=== PATIENT | female | born 1990 | race Caucasian/White ===

== ENCOUNTER 2018-08-15 12:33 | Emergency (ER) | payer BC ==
[2018-08-15] MEDS ORDERED: NS 0.9% 1000 ML* 1,000 ML IV ONE (13:03)
[2018-08-15] MEDS ORDERED: predniSONE TAB* 20 MG PO ONE (13:06)
[2018-08-15] MEDS ORDERED: Albuterol/Ipratropium NEB.SOL* Albuterol 2.5 MG/Ipratropium 0.5 MG 3 ML INH ONE (13:06)
--- NOTE | 2018-08-15 13:12 | ED ---
Complex/Multi-Sys Presentation - HPI Summary HPI Summary: Patient is a 27 y/o F w/ c/o cough, SVT and syncopal episode. Cough has been present for a week. Cough is productive w/ clear phlegm. Fever, chills, abnormal ANDRADE is denied. Patient's son is reported to be sick (has a runny nose). Cough has progressively worsened throughout the week. She has been taking cough drops with no relief. SOB, chest tightness and palpitations is noted with cough as well. Patient believes cough has also produced a flare up of her SVT. Dx of SVT in 2010, not on any medications currently as she reports that she has issues with low blood pressure. At 1100 today, patient was coughing, went into her bathroom, and had a syncopal episode. Patients partner witnessed the episode. She denies LOC and head injury. Patient reports she does not remember falling, but notes that she remembers being on the floor. She states feeling limp after the episode. She reports that she had one episode of similar Sx two years ago when she was Dx w/ bronchitis. She was treated with an inhaler for this. PMHx of asthma, diabetes, HTN, anemia is denied. Patient reports that she has been told she has early signs of emphysema. Patient smokes packs of cigarettes daily for the past 12 years. She denies alcohol and drug usage. Home medications and known allergies are denied. On triage, pain is denied. Nothing is noted to aggravate/alleviate Sx. - History Of Current Complaint Chief Complaint: EDUpperRespComplaint Time Seen by Provider: 08/15/18 12:45 Hx Obtained From: Patient Onset/Duration: Lasting Hours - syncopal episode at 1100, Lasting Weeks - cough , Still Present - cough Timing: Hours - syncopal episode 1100 today, Weeks - cough one week Severity Currently: None - pain is denied on triage Location: Negative Aggravating Factor(s): nothing Alleviating Factor(s): nothing Associated Signs And Symptoms: Positive: Cough, Other - POSITIVE: syncope, SVT, chest tightness, chest palpitations, "limp" after syncope, does not remember falling NEGATIVE: chills, LOC, head injury,. Negative: Headache, Fever - Allergies/Home Medications Allergies/Adverse Reactions: Allergies Allergy/AdvReac Type Severity Reaction Status Date / Time No Known Allergies Allergy Verified 08/15/18 12:35 PMH/Surg Hx/FS Hx/Imm Hx Endocrine/Hematology History: Denies: Hx Diabetes, Hx Anemia Cardiovascular History: Denies: Hx Hypertension Respiratory History: Denies: Hx Asthma Infectious Disease History: No Infectious Disease History: Denies: Traveled Outside the [place] in Last 30 Days - Family History Known Family History: Negative: Blood Disorder - Social History Alcohol Use: None Substance Use Type: Reports: None Smoking Status (MU): Current Every Day Smoker Review of Systems Positive: Other - felt "faint" after syncope . Negative: Fever, Chills Positive: Other - SVT, chest tightness and palpitations Positive: Shortness Of Breath, Cough Neurological: Other - POSITIVE: does not remember falling NEGATIVE: head injury Positive: Syncope - no LOC . Negative: Headache All Other Systems Reviewed And Are Negative: Yes Physical Exam - Summary Physical Exam Summary: Appearance: Well appearing, no pain distress Skin: warm, dry, reflects adequate perfusion Head/face: normal Eyes: EOMI, GANESH ENT: mucous membranes moist; clear nasal congestion Neck: supple, non-tender Respiratory: occasional wheezes, no rales or rhonci, breath sounds present Cardiovascular: RRR, pulses symmetrical Abdomen: non-tender, soft Bowel Sounds: present Musculoskeletal: normal, strength/ROM intact Neuro: normal, sensory motor intact, A&Ox3 Triage Information Reviewed: Yes Vital Signs On Initial Exam: Initial Vitals Temp Pulse Resp BP Pulse Ox 98 F 84 18 107/73 98 08/15/18 12:35 08/15/18 12:35 08/15/18 12:35 08/15/18 12:35 08/15/18 12:35 Vital Signs Reviewed: Yes Diagnostics - Vital Signs Vital Signs Temp Pulse Resp BP Pulse Ox 08/15/18 12:35 98 F 84 18 107/73 98 - Laboratory Result Diagrams: 08/15/18 13:09 08/15/18 13:09 Lab Statement: Any lab studies that have been ordered have been reviewed, and results considered in the medical decision making process. - Radiology CXR Xray Interpretation: No Acute Changes Radiology Interpretation Completed By: Radiologist - no evidence for acute intrathoracic disease; this report was reviewed by ed physician - EKG 1312 Cardiac Rate: NL - rate of 70 bpm EKG Rhythm: Sinus Rhythm ST Segment: Normal EKG Interpretation: normal axis, normal interval Re-Evaluation - Re-Evaluation First Eval Re-Evaluation Time: 14:09 Comment: Discussed results of labs and tests. Plan of treatment was discussed as well. Patient will be discharged to home and was advised to follow up with PCP. Complex Multi-Symp Course/Dx Course Of Treatment: Patient with cough and cold symptoms for one week and had a syncopal episode just prior to arrival. She likely was hypovolemic or vasovagal. Electrolytes, blood counts are normal and EKG shows no electrical abnormalities. She was hydrated here given a breathing treatment with improvement. She is also started on steroid. X-ray was negative for acute infiltrate. Treat symptomatically, follow-up closely with primary care physician and off work. - Diagnoses Differential Diagnoses/HQI/PQRI: Other - URI, pneumonia, hypovolemia, vasovagal Provider Diagnoses: URI (upper respiratory infection), Episode of syncope Discharge - Sign-Out/Discharge Documenting (check all that apply): Patient Departure - discharge - Discharge Plan Condition: Stable Disposition: HOME Prescriptions: Albuterol HFA INHALER* [Ventolin HFA Inhaler*] 2 puff INH Q4H PRN #1 mdi PRN Reason: Sob/Wheezing guaiFENesin [Mucinex] 600 mg PO BID PRN #20 tab.er.12h PRN Reason: Congestion predniSONE TAB* [Deltasone TAB*] 50 mg PO DAILY #4 tab Patient Education Materials: Syncope (ED), Upper Respiratory Infection (ED) Forms: *Work Release Referrals: Karla Cooper NP [Primary Care Provider] - Additional Instructions: Drink plenty of fluids. Humidifier by the bedside while you sleep. Tylenol, ibuprofen for body aches and chills. Return if worse, high fevers, difficulty breathing, new symptoms or other concerns. Follow up with her doctor tomorrow. - Billing Disposition and Condition Condition: STABLE Disposition: Home - Attestation Statements Document Initiated by Scribe: Yes Documenting Scribe: Elton Granados Provider For Whom Scribe is Documenting (Include Credential): Ghulam Tracy MD Scribe Attestation: Elton Ramirez , scribed for Ghulam Tracy MD on 08/15/18 at 1503. Scribe Documentation Reviewed: Yes Provider Attestation: The documentation as recorded by the Elton ortiz accurately reflects the service I personally performed and the decisions made by me, Ghulam Tracy MD
[2018-08-15 13:19] LABS: ABS Basophils 0.1 10^3/ul (0-0.2); ABS Eosinophils 0.1 10^3/ul (0-0.6); ABS Lymphocytes 2.5 10^3/ul (1.0-4.8); ABS Monocytes 0.5 10^3/ul (0-0.8); ABS Nucleated RBC 0 10^3/ul; Eosinophil % 1.3 % (0-6); Hematocrit 40 % (35-47); Hemoglobin 13.5 g/dl (12.0-16.0); Lymphocyte % 30.2 % (25-47); Mean Corpuscular HGB Conc 34 g/dl (31-36); Mean Corpuscular Hemoglobin 31 pg (27-31); Mean Corpuscular Volume 92 fL (80-97); Nucleated Red Blood Cells % 0.2; Platelet Count 208 10^3/ul (150-450); Red Blood Count 4.39 10^6/ul (4.00-5.40); Red Cell Distribution Width 13 % (10.5-15); White Blood Count 8.1 10^3/ul (3.5-10.8)
[2018-08-15 13:36] LABS: EGFR Non-African American 137.4 (>60)
--- NOTE | 2018-08-15 13:42 | RAD ---
INDICATION: Cough, syncope. Shortness of breath. COMPARISON: No relevant prior exams available on the [facility] for comparison. TECHNIQUE: Dual energy PA and routine lateral views of the chest were obtained. REPORT: Clear lungs and pleural spaces. Negative for pneumothorax. The heart, pulmonary vasculature, and mediastinal contours are unremarkable. Unremarkable osseous structures and soft tissue contours. IMPRESSION: #. No evidence for acute intrathoracic disease.
[2018-08-15 14:29] VITALS: BP 108/69
== END 2018-08-15 14:27 | disposition home or self-care (01) ==
LOC: ED 12:33
DX: J06.9 Acute upper respiratory infection, unspecified (principal); R55 Syncope and collapse; I47.1 Supraventricular tachycardia; J45.909 Unspecified asthma, uncomplicated; I10 Essential (primary) hypertension; D64.9 Anemia, unspecified; F17.210 Nicotine dependence, cigarettes, uncomplicated
CPT/HCPCS: 36415; 71046; 80048; 84702; 85025; 93005; 99282; A9270-GY; J7512

== ENCOUNTER 2018-09-01 12:06 | Emergency (ER) | payer BC ==
[2018-09-01 13:15] VITALS: BP 108/69
--- NOTE | 2018-09-01 13:36 | UC ---
Complaint Female HPI - HPI Summary HPI Summary: 27-year-old woman comes in today with a chief complaint of blood in her urine and dysuria and urgency. This all started smoking. She's had a UTI in the past reminds her UTI. Denies any abnormal vaginal discharge. Denies any abdominal pain or flank pain or fevers. - History Of Current Complaint Chief Complaint: UCGU Stated Complaint: URINARY Time Seen by Provider: 09/01/18 13:11 Hx Last Menstrual Period: 08/20/18 Pain Intensity: 2 - Allergies/Home Medications Allergies/Adverse Reactions: Allergies Allergy/AdvReac Type Severity Reaction Status Date / Time No Known Allergies Allergy Verified 09/01/18 13:09 PMH/Surg Hx/FS Hx/Imm Hx Previously Healthy: Yes - Surgical History Surgical History: Yes Surgery Procedure, Year, and Place: CARDIAC ABLATIONS-2. BUNIONECTOMY. UMBILLICAL HERNIA REPAIR - Family History Known Family History: Negative: Diabetes, Blood Disorder - Social History Alcohol Use: None Substance Use Type: None Smoking Status (MU): Heavy Every Day Tobacco Smoker Type: Cigarettes Amount Used/How Often: 3/4 PPD Review of Systems Constitutional: Negative Skin: Negative Eyes: Negative ENT: Negative Respiratory: Negative Cardiovascular: Negative Gastrointestinal: Negative Genitourinary: Dysuria, Hematuria, Frequency, Urgency Motor: Negative Neurovascular: Negative Musculoskeletal: Negative Neurological: Negative Psychological: Negative Is Patient Immunocompromised?: No All Other Systems Reviewed And Are Negative: Yes Physical Exam Triage Information Reviewed: Yes Appearance: Well-Appearing, No Pain Distress, Well-Nourished Vital Signs: Initial Vital Signs Temp 97.9 F 09/01/18 13:10 Pulse 97 09/01/18 13:10 Resp 18 09/01/18 13:10 BP 108/69 09/01/18 13:10 Pulse Ox 99 09/01/18 13:10 Vital Signs Reviewed: Yes Eye Exam: Normal Eyes: Positive: Conjunctiva Clear Neck exam: Normal Neck: Positive: Supple Respiratory: Positive: Lungs clear, Normal breath sounds, No respiratory distress, No accessory muscle use Cardiovascular: Positive: RRR Abdomen Description: Positive: Nontender, Soft. Negative: CVA Tenderness (R), CVA Tenderness (L) Musculoskeletal Exam: Normal Musculoskeletal: Positive: Strength Intact, ROM Intact Neurological Exam: Normal Neurological: Positive: Alert, Muscle Tone Normal Psychological Exam: Normal Psychological: Positive: Normal Response To Family, Age Appropriate Behavior Skin Exam: Normal Complaint Female Dx - Differential Dx/Diagnosis Provider Diagnoses: uti Discharge - Sign-Out/Discharge Documenting (check all that apply): Patient Departure All imaging exams completed and their final reports reviewed: No Studies - Discharge Plan Condition: Stable Disposition: HOME Prescriptions: Phenazopyridine 200 mg (NF) [Pyridium 200 MG tab *] 200 mg PO TID PRN #10 tab PRN Reason: Pain Sulfamethox/Trimethoprim DS* [Bactrim DS 800/160 TAB*] 1 tab PO BID #14 tab Patient Education Materials: Urinary Tract Infection in Women (ED) Referrals: Karla Cooper NP [Primary Care Provider] - Additional Instructions: FOLLOW UP WITH YOUR DOCTOR IF NOT COMPLETELY IMPROVED. GET RECHECKED FOR ANY WORSENING OF YOUR CONDITION OR QUESTIONS OR CONCERNS. - Billing Disposition and Condition Condition: STABLE Disposition: Home
== END 2018-09-01 13:56 | disposition home or self-care (01) ==
LOC: UCCORT 12:06
DX: N39.0 Urinary tract infection, site not specified (principal); F17.210 Nicotine dependence, cigarettes, uncomplicated
CPT/HCPCS: 81003; 84702; 87077; 87086; 87186; 99212; G0463

== ENCOUNTER 2018-10-25 09:52 | Emergency (ER) | payer BC ==
[2018-10-25 10:10] VITALS: BP 118/68
--- NOTE | 2018-10-25 10:51 | UC ---
Complaint Female HPI - HPI Summary HPI Summary: 27 year old female presents with 1 week history of dysuria. She also notes 2 sores to her labia, a foul smelling vaginal discharge, and mild LLQ pain. States she test positive for HSV during her last but denies any previous episodes of genital lesions. She is sexually active with a new male partner of 2 months. Does not use contraception. LMP 09/26/2018. She was treated at this facility 09/01/2018 for UTI but states she did not complete the entire course of antibiotic. - History Of Current Complaint Chief Complaint: UCGU Stated Complaint: URINARY COMPLAINT Time Seen by Provider: 10/25/18 10:25 Hx Obtained From: Patient Hx Last Menstrual Period: 09/26/18 Pain Intensity: 0 - Risk Factors Ectopic Risk Factor: Negative - Allergies/Home Medications Allergies/Adverse Reactions: Allergies Allergy/AdvReac Type Severity Reaction Status Date / Time No Known Allergies Allergy Verified 09/01/18 13:09 Home Medications: Home Medications NK [No Home Medications Reported] 10/25/18 [History Confirmed 10/25/18] PMH/Surg Hx/FS Hx/Imm Hx Previously Healthy: Yes - Denies significant PMH - Surgical History Surgical History: Yes Surgery Procedure, Year, and Place: CARDIAC ABLATIONS-2. BUNIONECTOMY. UMBILLICAL HERNIA REPAIR - Family History Known Family History: Positive: Non-Contributory - Social History Occupation: Unemployed Lives: With Family - Significant other Alcohol Use: None Substance Use Type: None Smoking Status (MU): Heavy Every Day Tobacco Smoker Type: Cigarettes Amount Used/How Often: 3/4 PPD Review of Systems All Other Systems Reviewed And Are Negative: Yes Constitutional: Negative: Fever, Chills Gastrointestinal: Positive: Abdominal Pain. Negative: Vomiting, Diarrhea, Nausea Genitourinary: Positive: Dysuria, Urgency, Vaginal/Penile Discharge, Ulceration/ Lesion. Negative: Hematuria, Frequency, Abnormal Bleeding Is Patient Immunocompromised?: No Physical Exam Triage Information Reviewed: Yes Appearance: Well-Appearing, No Pain Distress, Obese Vital Signs: Initial Vital Signs Temp 98.0 F 10/25/18 10:06 Pulse 90 10/25/18 10:06 Resp 16 10/25/18 10:06 BP 118/68 10/25/18 10:06 Pulse Ox 98 10/25/18 10:06 Vital Signs Reviewed: Yes Respiratory: Positive: Lungs clear, Normal breath sounds, No respiratory distress Cardiovascular: Positive: RRR, No Murmur, Pulses Normal, Brisk Capillary Refill Abdomen Description: Positive: No Organomegaly, Soft, Other: - Mild LLQ tenderness. Negative: CVA Tenderness (R), CVA Tenderness (L), Distended, Guarding Bowel Sounds: Positive: Present Pelvic Exam: Positive: No Cerv. Motion Tender, No Masses, Discharge - Thin white discharge, Tender Adnexa - Mild left adenexal tenderness without mass, Other - Cultures obtained and sent. Negative: Active Bleeding, Cervicitis, Lesions, Ulcers Musculoskeletal Exam: Normal Neurological: Positive: Alert Skin Exam: Normal Complaint Female Dx - Course Course Of Treatment: 27 year old female presents with 1 week history of dysuria. She also notes 2 sores to her labia, a foul smelling vaginal discharge , and mild LLQ pain. States she test positive for HSV during her last but denies any previous episodes of genital lesions. She is sexually active with a new male partner of 2 months. Does not use contraception. LMP 2017. Afebrile. VSS. Exam revealed mild LLQ pain, vaginal discharge and mild left adnexal tenderness without mass but otherwise unremarkable exam. Cultures were obtained and sent. Patient declined HIV testing. Urine preganancy was positive therefore recommended that she be evaluated in ED for possible ectopic . Antibiotic treatment was deferred pending this evaluation. Patient is agreeable and is electing to transfer via private vehicle. - Differential Dx/Diagnosis Differential Diagnosis/HQI/PQRI: Ectopic, Ovarian Cyst, Pelvic Inflammatory Disease, Sexually Transmitted Disease, Urinary Tract Infection Provider Diagnosis: Dysuria in , Left lower quadrant pain, Discharge - Sign-Out/Discharge Documenting (check all that apply): Patient Departure All imaging exams completed and their final reports reviewed: No Studies - Discharge Plan Condition: Stable Disposition: HOME Patient Education Materials: (ED), Safe Sex (ED), Dysuria (ED) Referrals: Karla Cooper NP [Primary Care Provider] - Additional Instructions: Your urine test today was suggestive of a urinary tract infection. The pelvic exam was unremarkable except for some vaginal discharge. We will be sending the urine for culture as well as screening for sexually transmitted infections. You declined HIV testing at this time. Your urine test in the clinic today was positive. With your left- sided abdominal and pelvic pain we need to consider the possibility of an ectopic which can be life-threatening. I am recommending that you go directly to the emergency room at [facility] for further evaluation. Please go directly to the emergency room. - Billing Disposition and Condition Condition: STABLE Disposition: Home
--- NOTE | 2018-10-27 07:53 | UC ---
- Progress Note Progress Note: Patient seen here in clinic October 25, 2018. It was recommended that the patient go to the emergency department from the urgent care due to a positive vaginal discharge and pelvic pain. 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 In the note it's indicated the patient's had a history of HSV. Nursing to contact patient and to determine if she was treated for these infections in the emergency department. If she has not been treated the plan is to call in Flagyl 500 mg by mouth twice a day for 7 days for the Gardnerella. And also call in valacyclovir 1 g by mouth daily for 5 days for the HSV-2 reoccurrence. Course/Dx - Diagnoses Provider Diagnoses: Dysuria in , Left lower quadrant pain, Discharge - Sign-Out/Discharge Documenting (check all that apply): Patient Departure All imaging exams completed and their final reports reviewed: No Studies - Discharge Plan Condition: Stable Disposition: HOME Patient Education Materials: (ED), Safe Sex (ED), Dysuria (ED) Referrals: Karla Cooper NP [Primary Care Provider] - Additional Instructions: Your urine test today was suggestive of a urinary tract infection. The pelvic exam was unremarkable except for some vaginal discharge. We will be sending the urine for culture as well as screening for sexually transmitted infections. You declined HIV testing at this time. Your urine test in the clinic today was positive. With your left- sided abdominal and pelvic pain we need to consider the possibility of an ectopic which can be life-threatening. I am recommending that you go directly to the emergency room at [facility] for further evaluation. Please go directly to the emergency room. - Billing Disposition and Condition Condition: STABLE Disposition: Home
== END 2018-10-25 11:40 | disposition home or self-care (01) ==
LOC: UCCORT 09:52
DX: R30.0 Dysuria (principal); R10.32 Left lower quadrant pain; O26.899 Other specified pregnancy related conditions, unspecified trimester; O99.330 Smoking (tobacco) complicating pregnancy, unspecified trimester; F17.210 Nicotine dependence, cigarettes, uncomplicated; Z3A.00 Weeks of gestation of pregnancy not specified
CPT/HCPCS: 36415; 81003; 84702; 86592; 87086; 87480; 87491; 87510; 87529; 87591; 87661; 99212; G0463

== ENCOUNTER 2019-12-06 15:45 | Emergency (ER) | payer OTHER ==
[2019-12-06 16:11] VITALS: BP 93/65
--- NOTE | 2019-12-06 17:19 | UC ---
Lower Extremity/Ankle HPI - HPI Summary HPI Summary: 29-year-old female presenting with left heel pain since yesterday. Denies any known trauma or injury. States it began yesterday after she drove home from [place]. States pain is worse with ambulating and bearing weight. States pain is better with rest. Denies any strenuous physical activities. Denies anything like this in the past. Patient does note that it looks as though the back of her heel is somewhat red and swollen. Denies history of gout. Denies fever and chills. Denies nausea and vomiting. Does note h/o bunion surgery of L foot a few years ago. - History of Current Complaint Chief Complaint: UCLowerExtremity Stated Complaint: PAIN LEFT FOOT Hx Obtained From: Patient Hx Last Menstrual Period: 11/27/19 Pain Intensity: 8 Pain Scale Used: 0-10 Numeric - Allergies/Home Medications Allergies/Adverse Reactions: Allergies Allergy/AdvReac Type Severity Reaction Status Date / Time No Known Allergies Allergy Verified 12/06/19 16:06 Home Medications: Home Medications Ibuprofen TAB* [Advil TAB*] 1,000 mg PO ONCE 12/06/19 [History Confirmed ] PMH/Surg Hx/FS Hx/Imm Hx - Surgical History Surgical History: Yes Surgery Procedure, Year, and Place: CARDIAC ABLATIONS-2. BUNIONECTOMY. UMBILLICAL HERNIA REPAIR. fallopian tubes removed - Family History Known Family History: Positive: Non-Contributory Negative: Diabetes, Blood Disorder - Social History Alcohol Use: None Substance Use Type: None Smoking Status (MU): Heavy Every Day Tobacco Smoker Type: Cigarettes Amount Used/How Often: 1/2 PPD Review of Systems All Other Systems Reviewed And Are Negative: Yes Constitutional: Positive: Negative Respiratory: Positive: Negative Cardiovascular: Positive: Negative Gastrointestinal: Positive: Negative Musculoskeletal: Positive: Arthralgia - left heel pain, Edema - left heel. Negative: Decreased ROM Neurological: Positive: Negative. Negative: Paresthesia, Numbness Physical Exam - Summary Physical Exam Summary: Vital Signs Reviewed: Yes A+Ox3, no distress Eyes: Conjunctiva Clear ENT: Hearing grossly normal Neck: Positive: Supple Respiratory: Positive: No respiratory distress, No accessory muscle use Cardiovascular: skin reflects adequate perfusion Musculoskeletal Exam: +TTP of posterior calcaneous, no erythema, no warmth or fluctuance, skin intact, no edema Strength Intact, ROM Intact Neurological: Positive: Alert, + sensation throughout Psychological: Positive: age appropriate behavior Skin: Positive: see above Vital Signs: Initial Vital Signs Temp 98 F 12/06/19 16:06 Pulse 91 12/06/19 16:06 Resp 18 12/06/19 16:06 BP 93/65 12/06/19 16:06 Pulse Ox 97 12/06/19 16:06 Diagnostics - Radiology L foot Radiology Interpretation Completed By: Radiologist Summary of Radiographic Findings: IMPRESSION: 1. NO FRACTURE IDENTIFIED. 2. NO CALCANEAL ENTHESOPHYTE. 3. POSTOPERATIVE CHANGES ABOVE. Lower Extremity Course/Dx - Course Course Of Treatment: Discussed negative radiographs with patient. No s/s of infection. Instructed to continue with symptomatic treatment including use of post op shoe and follow up with her hand compositor if pain persists. Instructed to go to ED with any new or worsening symptoms. Patient voiced understanding and agreed with plan. - Differential Dx/Diagnosis Provider Diagnosis: Pain of left heel Discharge ED - Sign-Out/Discharge Documenting (check all that apply): Patient Departure All imaging exams completed and their final reports reviewed: Yes - Discharge Plan Condition: Stable Disposition: HOME Patient Education Materials: Arthralgia (ED) Referrals: No Primary Care Phys,NOPCP [Primary Care Provider] - Additional Instructions: As discussed, the xrays of your heel did not show any abnormalities. Rest, ice, elevate, and use the post op shoe to help alleviate pain. You may also take over the counter pain medications as directed. Follow up with your hand compositor as soon as possible if pain persists. Go to the emergency room with any new or worsening symptoms. - Billing Disposition and Condition Condition: STABLE Disposition: Home - Attestation Statements Provider Attestation: This patient was not seen by me. I was available for consult. Chart reviewed. SHAW
== END 2019-12-06 18:34 | disposition home or self-care (01) ==
LOC: UCCORT 15:45
DX: M25.572 Pain in left ankle and joints of left foot (principal); R60.0 Localized edema; Z98.890 Other specified postprocedural states; F17.210 Nicotine dependence, cigarettes, uncomplicated
CPT/HCPCS: 99212; G0463